=== PATIENT | female | born 1995 | race Caucasian/White ===

== ENCOUNTER 2018-06-17 10:23 | Emergency (ER) | payer OTHER, SELFPAY ==
[2018-06-17 11:02] LABS: Urine Blood NEGATIVE (NEG); Urine Glucose NEGATIVE (NEG); Urine Protein 1+ (NEG); Urine pH 6.5 (5.0-7.0)
[2018-06-17 11:10] LABS: Urine Amorphous Sediment TRACE /HPF (NONE SEEN); Urine Bacteria <20 /HPF (<20); Urine Culture Reflex Order NOT NEEDED; Urine Mucus 1+ /HPF (NONE SEEN); Urine RBC <5 /HPF (NONE SEEN)
--- NOTE | 2018-06-17 11:10 | RAD REPORT ---
EXAM DESCRIPTION: CT - Head Brain Wo Cont - 06/17/2018 11:03 am CLINICAL HISTORY: Hand and face numbness COMPARISON: None. TECHNIQUE: Axial 5 mm thick images of the head were obtained without IV contrast. All CT scans are performed using dose optimization technique as appropriate and may include automated exposure control or mA/KV adjustment according to patient size. FINDINGS: No intracranial hemorrhage, mass, edema or shift of mid-line structures. No acute infarcti on changes seen. No abnormal extra-axial fluid collections. Ventricles are normal. Mastoid air cells and visualized portions of the paranasal sinuses are clear. No acute bony findings. IMPRESSION: Negative non-contrast CT head examination.
[2018-06-17 11:12] LABS: Barbiturates NEGATIVE (NEGATIVE); Benzodiazepines NEGATIVE (NEGATIVE); Cocaine NEGATIVE (NEGATIVE); METHAMPHETAM NEGATIVE (NEGATIVE); Methadone NEGATIVE (NEGATIVE); Opiates NEGATIVE (NEGATIVE); Phencyclidine NEGATIVE (NEGATIVE); THC Cannibis NEGATIVE (NEGATIVE)
--- NOTE | 2018-06-17 11:48 | RAD REPORT ---
EXAM DESCRIPTION: RAD - Lumbar Spine 3 Views - 06/17/2018 11:21 am CLINICAL HISTORY: Back pain, bilateral lower extremity numbness COMPARISON: None. FINDINGS: A three-view lumbar spine examination was performed. Lumbar bodies are normal in height. L 5 pars interarticularis defects are present with a very slight 2 mm subluxation of L5 relative to S1. No acute fracture or acute bone process. No disc space narrowing. No other pars defects. IMPRESSION: L5 spondylolysis with minimal 2 mm spondylolisthesis.
--- NOTE | 2018-06-17 12:10 | EKG ---
Test Date: 2018-06-17 Test Time: 10:41:06 Reinforced Concrete Inspector: RAMONITA MEASUREMENT RESULTS: Intervals: Rate: 114 PA: 130 QRSD: 72 QT: 306 QTc: 421 [place]: P: 53 PA: 130 QRS: 65 T: 19 INTERPRETIVE STATEMENTS: Sinus tachycardia Nonspecific T wave abnormality Abnormal ECG No previous ECG available for comparison Electronically Signed On 06-17-18 12:09:40 CDT by Heber Obrien
[2018-06-17] MEDS ORDERED: NA CHLORIDE 0.9% 1,000 ML ONE (12:11)
[2018-06-17 12:14] LABS: Absolute Lymphocytes (CBC) 1.1 K/uL (0.7-4.9); Absolute Monocytes 0.5 K/uL (0.1-1.3); Absolute Neutrophil 11.4 K/uL (1.8-8.0); Basophils % 0.2 % (0-1.3); Eosinophils % 2.9 % (0-4.4); Hematocrit 40.5 % (36.0-45.0); Lymphocytes % 7.9 % (15.3-44.8); MCH 29.2 pg (27.0-35.0); MCV 87.9 fL (80-100); MPV 8.3 fL (7.6-11.3); Monocytes % 3.9 % (3.3-12.3); RBC Red Blood Cell Count 4.61 M/uL (3.86-4.86)
[2018-06-17 12:27] LABS: BUN Blood Urea Nitrogen 18 mg/dL (7-18); Bicarbonate 28 mmol/L (21-32); Glucose Level 99 mg/dL (74-106); Potassium 3.4 mmol/L (3.5-5.1); Sodium Level 139 mmol/L (136-145)
[2018-06-17 13:14] LABS: Blood Morphology Comment NOT SEEN (NOT SEEN); Platelet Estimate ADEQ; Urine White Blood Cell Casts OK
--- NOTE | 2018-06-17 13:18 | EDPHYS ---
Physician Documentation [facility] Name: Carmine Umaña Age: 23 yrs Sex: Female : 1995 Arrival Date: 06/17/2018 Time: 10:24 Bed 5 Private MD: ED Physician Luke Vivas HPI: 06/17 10:55 This 23 yrs old Female presents to ER via Ambulatory with complaints of snw Numbness. 10:55 Onset: The symptoms/episode began/occurred acutely, yesterday, at 21:00. Associated snw signs and symptoms: The patient has no apparent associated signs or symptoms. Modifying factors: The patient symptoms are alleviated by nothing, the patient symptoms are aggravated by nothing. The patient has not experienced similar symptoms in the past. The patient has not recently seen a physician. pt reports that her half sister has MS, no thyroid dz in family, pt encouraged to see Neurology, states her has been suggesting this for some time as he notes she has a tic where she tilts her head sideways. this has been a problem increasing in intensity x one year. 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 - Social history:: Smoking status: Patient/guardian denies using tobacco. - Ebola Screening: : Patient negative for fever greater than or equal to 101.5 degrees Fahrenheit, and additional compatible Ebola Virus Disease symptoms Patient denies exposure to infectious person Patient denies travel to an Ebola-affected area in the 21 days before illness onset No symptoms or risks identified at this time. ROS: 10:53 Constitutional: Negative for fever, chills, and weight loss, Eyes: Negative for injury, snw pain, redness, and discharge, ENT: Negative for injury, pain, and discharge, Neck: Negative for injury, pain, and swelling, Cardiovascular: Negative for chest pain, palpitations, and edema, Respiratory: Negative for shortness of breath, cough, wheezing, and pleuritic chest pain, Abdomen/GI: Negative for abdominal pain, nausea, vomiting, diarrhea, and constipation, Back: Negative for injury and pain, : Negative for injury, bleeding, discharge, and swelling, MS/Extremity: Negative for injury and deformity, Skin: Negative for injury, rash, and discoloration. 10:53 Neuro: Positive for tingling, of the upper and lower extremities. Exam: 10:53 Constitutional: This is a well developed, well nourished patient who is awake, alert, snw and in no acute distress. Head/Face: Normocephalic, atraumatic. Eyes: Pupils equal round and reactive to light, extra-ocular motions intact. Lids and lashes normal. Conjunctiva and sclera are non-icteric and not injected. Cornea within normal limits. Periorbital areas with no swelling, redness, or edema. ENT: Nares patent. No nasal discharge, no septal abnormalities noted. Tympanic membranes are normal and external auditory canals are clear. Oropharynx with no redness, swelling, or masses, exudates, or evidence of obstruction, uvula midline. Mucous membranes moist. Neck: Trachea midline, no thyromegaly or masses palpated, and no cervical lymphadenopathy. Supple, full range of motion without nuchal rigidity, or vertebral point tenderness. No Meningismus. Chest/axilla: Normal chest wall appearance and motion. Nontender with no deformity. No lesions are appreciated. Respiratory: Lungs have equal breath sounds bilaterally, clear to auscultation and percussion. No rales, rhonchi or wheezes noted. No increased work of breathing, no retractions or nasal flaring. Abdomen/GI: Soft, non-tender, with normal bowel sounds. No distension or tympany. No guarding or rebound. No evidence of tenderness throughout. Back: No spinal tenderness. No costovertebral tenderness. Full range of motion. Skin: Warm, dry with normal turgor. Mildly mottled with no rashes, no lesions, and no evidence of cellulitis. MS/ Extremity: Pulses equal, no cyanosis. Neurovascular intact. Full, normal range of motion. Neuro: Awake and alert, GCS 15, oriented to person, place, time, and situation. Cranial nerves II-XII grossly intact. Motor strength 5/5 in all extremities. Sensory grossly intact. Cerebellar exam normal. Normal gait. 10:53 Cardiovascular: Rate: tachycardic, Heart sounds: normal. Vital Signs: 10:30 BP 126 / 99; Pulse 116; Resp 20; Temp 99.2; Pulse Ox 100% on R/A; Weight 76.66 kg; aj Height 5 ft. 7 in. (170.18 cm); 11:30 BP 117 / 82; Pulse 94; Resp 16; Pulse Ox 98% on R/A; ph 12:51 BP 102 / 70; Pulse 92; Resp 16; Pulse Ox 100% on R/A; ph 14:10 BP 104 / 71; Pulse 90; Resp 16 S; Pulse Ox 100% on R/A; jl7 10:30 Body Mass Index 26.47 (76.66 kg, 170.18 cm) aj MDM: 10:47 Patient medically screened. snw 13:21 Data reviewed: vital signs, nurses notes. Data interpreted: Pulse oximetry: on room air snw is 100 %. Interpretation: normal. Counseling: I had a detailed discussion with the patient and/or guardian regarding: the historical points, exam findings, and any diagnostic results supporting the discharge/admit diagnosis, lab results, radiology results, the need for outpatient follow up, to return to the emergency department if symptoms worsen or persist or if there are any questions or concerns that arise at home. Special discussion: Based on the history and exam findings, there is no indication for further emergent testing or inpatient evaluation. I discussed with the patient/guardian the need to see the neurologist for further evaluation of the symptoms. I discussed with the patient/guardian the need to see the primary care provider for further evaluation of the symptoms. 06/17 10:39 Order name: Urine Microscopic Only; Complete Time: 11:15 snw 06/17 10:47 Order name: CBC with Diff; Complete Time: 13:16 snw 06/17 10:47 Order name: Chem 7; Complete Time: 12:32 snw 06/17 10:47 Order name: TSH; Complete Time: 12:32 snw 06/17 10:47 Order name: UDS; Complete Time: 11:15 snw 06/17 10:59 Order name: Urine Dipstick--Ancillary (enter results); Complete Time: 11:07 em1 06/17 10:39 Order name: Urine Test (obtain specimen); Complete Time: 10:59 snw 06/17 10:39 Order name: Urine Dipstick-Ancillary (obtain specimen); Complete Time: 10:59 snw 06/17 10:39 Order name: Lumbar Spine (3 Views) XRAY; Complete Time: 12:01 snw 06/17 10:47 Order name: CT Head Brain wo Cont; Complete Time: 11:15 snw 06/17 10:48 Order name: EKG; Complete Time: 10:48 snw 06/17 10:59 Order name: Urine --Ancillary (enter results); Complete Time: 11:07 em1 06/17 12:20 Order name: CBC Smear Scan; Complete Time: 13:16 EDMS 06/17 10:48 Order name: EKG - Nurse/Tech; Complete Time: 12:01 snw 06/17 12:33 Order name: VS Recheck; Complete Time: 13:05 snw Administered Medications: 12:30 Drug: NS 0.9% 1000 ml Route: IV; Rate: 1000 ml; Site: left antecubital; ph 13:30 Follow up: IV Status: Completed infusion jl7 Disposition: 16:17 Co-signature as Attending Physician, Luke Vivas MD I agree with the assessment and kdr plan of care. Disposition: 06/17/18 13:17 Discharged to Home. Impression: Paresthesia of skin. - Condition is Stable. - Discharge Instructions: Paresthesia, Peripheral Neuropathy. - Medication Reconciliation Form, Thank You Letter, Antibiotic Education, Prescription Opioid Use form. - Follow up: Private Physician; When: 2 - 3 days; Reason: Recheck today's complaints, Continuance of care, Re-evaluation by your physician. Follow up: Emergency Department; When: As needed; Reason: Worsening of condition. Signatures: Dispatcher [employer] Shaina Hyatt, RN Luke Figueroa MD MD kdr Therrien, Shelly, CLIENT SOLUTIONS SPECIALIST-C CLIENT SOLUTIONS SPECIALIST-Csnw Lana Escamilla, RN RN Sangeeta Cifuentes RN RN jl7 Corrections: (The following items were deleted from the chart) 14:17 13:17 06/17/2018 13:17 Discharged to Home. Impression: Paresthesia of skin. Condition jl7 is Stable. Forms are Medication Reconciliation Form, Thank You Letter, Antibiotic Education, Prescription Opioid Use. Follow up: Private Physician; When: 2 - 3 days; Reason: Recheck today's complaints, Continuance of care, Re-evaluation by your physician. Follow up: Emergency Department; When: As needed; Reason: Worsening of condition. snw
--- NOTE | 2018-06-17 13:18 | ER ---
Nurse's Notes [facility] Name: Carmine Umaña Age: 23 yrs Sex: Female : 1995 Arrival Date: 06/17/2018 Time: 10:24 Bed 5 Private MD: Diagnosis: Paresthesia of skin Presentation: 06/17 10:28 Presenting complaint: Patient states: Reports numbness from bilateral knees down, aj hands, and face that started last night at 2100. Ambulated with steady gait to triage. Speech is clear. Transition of care: patient was not received from another setting of care. Onset of symptoms was June 16, 2018. Risk Assessment: Do you want to hurt yourself or someone else? Patient reports no desire to harm self or others. Initial Sepsis Screen: Does the patient meet any 2 criteria? No. Patient's initial sepsis screen is negative. Does the patient have a suspected source of infection? No. Patient's initial sepsis screen is negative. Care prior to arrival: None. 10:28 Method Of Arrival: Ambulatory 10:28 Acuity: NINA 3 aj Triage Assessment: 10:30 General: Appears in no apparent distress. comfortable, Behavior is calm, cooperative, aj appropriate for age. Pain: Denies pain. Neuro: Level of Consciousness is awake, alert, obeys commands, Oriented to person, place, time, situation, Appropriate for age Glass Novelty Maker are equal bilaterally Moves all extremities. Full function Gait is steady, Speech is normal, Facial symmetry appears normal, Tingling in face, right hand, left hand, right foot, left foot, right leg and left leg. Respiratory: Airway is patent Respiratory effort is even, unlabored, Respiratory pattern is regular, symmetrical. Derm: Skin is intact, is healthy with good turgor, Skin is pink, warm \T\ dry. normal. 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 - Social history:: Smoking status: Patient/guardian denies using tobacco. - Ebola Screening: : Patient negative for fever greater than or equal to 101.5 degrees Fahrenheit, and additional compatible Ebola Virus Disease symptoms Patient denies exposure to infectious person Patient denies travel to an Ebola-affected area in the 21 days before illness onset No symptoms or risks identified at this time. Screenin:54 Abuse screen: Denies threats or abuse. Denies injuries from another. Nutritional ph screening: No deficits noted. Tuberculosis screening: No symptoms or risk factors identified. 13:04 Fall Risk None identified. ph Assessment: 10:45 General: Appears in no apparent distress. comfortable, slender, well groomed, Behavior ph is calm, cooperative, appropriate for age, Denies fever, feeling ill. Pain: Denies pain. Neuro: Level of Consciousness is awake, alert, obeys commands, Oriented to person, place, time, situation, Glass Novelty Maker are equal bilaterally Moves all extremities. Full function Gait is steady, Speech is normal, Pupils are PERRLA, Reports numbness in face, right arm and left arm, right lower leg and left lower leg. Cardiovascular: Denies chest pain, nausea, shortness of breath. Respiratory: Airway is patent Respiratory effort is even, unlabored, Respiratory pattern is regular, symmetrical. GI: No signs and/or symptoms were reported involving the gastrointestinal system. : No signs and/or symptoms were reported regarding the genitourinary system. Derm: Skin is intact, is healthy with good turgor, Skin is pink, warm \T\ dry. Musculoskeletal: Circulation, motion, and sensation intact. Range of motion: intact in all extremities. 12:00 Reassessment: Patient appears in no apparent distress at this time. Patient and/or ph family updated on plan of care and expected duration. Pain level reassessed. Patient is alert, oriented x 3, equal unlabored respirations, skin warm/dry/pink. Pt resting quietly, awaiting CT results. 13:05 Reassessment: Patient appears in no apparent distress at this time. Patient and/or ph family updated on plan of care and expected duration. Pain level reassessed. Patient is alert, oriented x 3, equal unlabored respirations, skin warm/dry/pink. Vital Signs: 10:30 BP 126 / 99; Pulse 116; Resp 20; Temp 99.2; Pulse Ox 100% on R/A; Weight 76.66 kg; aj Height 5 ft. 7 in. (170.18 cm); 11:30 BP 117 / 82; Pulse 94; Resp 16; Pulse Ox 98% on R/A; ph 12:51 BP 102 / 70; Pulse 92; Resp 16; Pulse Ox 100% on R/A; ph 14:10 BP 104 / 71; Pulse 90; Resp 16 S; Pulse Ox 100% on R/A; jl7 10:30 Body Mass Index 26.47 (76.66 kg, 170.18 cm) aj ED Course: 10:24 Patient arrived in ED. as 10:29 Triage completed. aj 10:30 Arm band placed on left wrist. Patient placed in an exam room. aj 10:37 Shanika Mckeon, WAYNE is PHCP. snw 10:37 Luke Vivas MD is Attending Physician. snw 10:41 Lana Escamilla, RYOCE is Primary Nurse. ph 10:52 EKG done, by ED staff, reviewed by Shanika BLACK. em1 11:[address] via wheelchair. cw1 11:03 CT Head Brain wo Cont In Process Unspecified. EDMS 11:19 CT completed. X-ray completed. Patient moved to radiology via wheelchair. Patient taken la2 to an exam room, Patient moved back from radiology. 11:20 Lumbar Spine (3 Views) XRAY In Process Unspecified. EDMS 11:57 Initial lab(s) drawn, by me, sent to lab. Inserted saline lock: 20 gauge in left em1 antecubital area, using aseptic technique. Blood collected. 13:04 Patient has correct armband on for positive identification. Bed in low position. Call ph light in reach. Side rails up X 1. Pulse ox on. NIBP on. Warm blanket given. 14:10 No provider procedures requiring assistance completed. IV discontinued, intact, jl7 bleeding controlled, No redness/swelling at site. Pressure dressing applied. Administered Medications: 12:30 Drug: NS 0.9% 1000 ml Route: IV; Rate: 1000 ml; Site: left antecubital; ph 13:30 Follow up: IV Status: Completed infusion jl7 Outcome: 13:17 Discharge ordered by . snw 14:17 Patient left the ED. jl7 14:17 Discharged to home ambulatory. ph 14:17 Condition: good 14:17 Discharge instructions given to patient, Instructed on discharge instructions, follow up and referral plans. Demonstrated understanding of instructions, follow-up care. Signatures: Dispatcher [employer] Shaina Hyatt, RN RN Shanika Kirkland, COURSE INSTRUCTOR-C COURSE INSTRUCTOR-Csnw Alejandrina Solis Eric em1 Nilesh, Jordyn cw1 Lana Escamilla RN RN ph Leal, Jahala, RN RN jl7 Janet Pollack
[2018-06-17 14:30] VITALS: TEMP 99.2
[2018-06-17 14:32] VITALS: O2SAT 100
[2018-06-17 14:33] VITALS: BP 104/71
== END 2018-06-17 14:17 | disposition home or self-care (01) ==
LOC: ER 10:23
DX: R20.0 Anesthesia of skin (principal)
CPT/HCPCS: 36415; 70450; 72100; 80048; 80307; 81003; 81015; 81025; 84443; 85025; 93005; 96360; 99284; J7030

== ENCOUNTER 2019-03-18 04:46 | Inpatient (IN) | payer OTHER ==
[2019-03-17 12:29] LABS: RPR Titer ND
[2019-03-17 12:33] LABS: Absolute Lymphocytes (CBC) 2.6 K/uL (0.7-4.9); Absolute Neutrophil 8.3 K/uL (1.8-8.0); Basophils % 0.3 % (0-1.3); Eosinophils % 0.5 % (0-4.4); Lymphocytes % 21.4 % (15.3-44.8); MPV 9.5 fL (7.6-11.3); Monocytes % 8.6 % (3.3-12.3); RBC Red Blood Cell Count 3.79 M/uL (3.86-4.86); Urine Appearance CLEAR; Urine Bilirubin NEGATIVE (NEG); Urine Blood NEGATIVE (NEG); Urine Color YELLOW; Urine Glucose NEGATIVE (NEG); Urine Protein NEGATIVE (NEG)
[2019-03-17 12:54] LABS: Urine Microscopic Reflex NO UMIC
[~2019-03-18 04:46] MED LIST: Ringers Lactate 1,000 ML IV PRN; Ringers Lactate 1,000 ML IV SCH
[2019-03-18] MEDS ORDERED: NA CIT/CITRIC AC 30 ML ORAL UDC PO ONE (04:48)
[2019-03-18] MEDS ORDERED: FAMOTIDINE 20 MG/2 ML VIAL IV ONE (04:49)
[2019-03-18] MEDS ORDERED: METOCLOPRAMIDE 10 MG/2mL INJ IV ONE (05:00)
[2019-03-18 05:18] VITALS: BMI 29.6
[2019-03-18] MEDS ORDERED: CARBOPROST TROME 250 MCG/ML IM ONE (07:00)
[2019-03-18] MEDS ORDERED: METHYLERGONOVINE 0.2MG/ML AMP IM ONE (07:00)
[2019-03-18] MEDS ORDERED: CEFAZOLIN/SWI 2gm 2 GM/20 ML SYR IVP SCH (07:00)
[2019-03-18] MEDS ORDERED: MORPHINE SULFATE/PF 1 MG/ML (10 ML AMP) ONE (07:14)
[2019-03-18] MEDS ORDERED: OXYTOCIN 10 UNIT/ML ML IV ONE (07:15)
[2019-03-18] MEDS ORDERED: ONDANSETRON 4 MG/2 ML VIAL ONE (07:21)
[2019-03-18] MEDS ORDERED: LIDOCAINE 2% MPF 5 ML VIAL ONE (07:40)
[2019-03-18] MEDS ORDERED: EPHEDRINE SULF 50 MG/ML VIAL ONE (07:49)
[2019-03-18] MEDS ORDERED: NS 0.9% VIAL 10 ML ONE (07:49)
[2019-03-18] MEDS ORDERED: ACETAMINOPHEN 500 MG TAB PO PRN (08:26)
[2019-03-18] MEDS ORDERED: DIPHENHYDRAMINE 25 MG TAB/CAP PO PRN (08:26)
[2019-03-18] MEDS ORDERED: ONDANSETRON 4 MG (ODT) TAB PO PRN (08:26)
[2019-03-18] MEDS ORDERED: KETOROLAC 30 MG/ML INJ IM PRN (08:26)
[2019-03-18] MEDS ORDERED: Oxycodone HCl/Acetaminophen 1 TAB TAB PO PRN (08:26)
[2019-03-18] MEDS ORDERED: BISACODYL 10 MG RECTAL SUPP RECT PRN (08:26)
[2019-03-18] MEDS ORDERED: ONDANSETRON 4 MG/2 ML VIAL IV PRN (08:26)
[2019-03-18] MEDS ORDERED: CEFAZOLIN 1GM (PREMIX IV) 50 ML IV ONE ×2 (08:26→16:00)
--- NOTE | 2019-03-18 08:40 | PREOPHP ---
Date of Admission: 03/18/2019 History Of Present Illness: Carmine Kebede is a 23-year-old 4, para 3, all previous C-sectio ns, for repeat , does not want a tubal. Knows with each surgery the risks of complications including infection, blood loss, anesthetic complications, injury to bladder, bowel, ureter, and accr eta. Nonetheless does not wish sterilization. She had a blood transfusion in 2009, she said that wa s prior to any . She has had gallbladder removed. She has a history of herpes. She is in a herpes-free interval and on acyclovir. Family History: Mother and father with hypertension. Mother with diabetes. Physical Examination: HEENT: Clear. Pupils equal, round, reactive to light accommodation. Conjunctivae well perfused. N o oral, buccal, or lingual lesions. Chest and lungs: Clear. Heart: Without murmurs, thrills, heaves, or rubs. Breasts: Not examined. Abdomen: Term size. Baby is thought to be at least 8 pounds. Extremities: Clear without edema, cyanosis, or clubbing. The baby is vertex. Cervix is fingertip. She is not allergic to any medication. We will proceed with repeat section on Monday. CARMELA/BULMARO Voice ID: [id number]
[2019-03-18] MEDS ORDERED: OXYTOCIN/LR 20 UNIT/1,000 ML BAG IV SCH (09:00)
[2019-03-18] MEDS ORDERED: D5LR 1,000 ML with OXYTOCIN 20 UNIT IV SCH ×2 (09:00)
[2019-03-18] MEDS ORDERED: CEFAZOLIN/SWI 1gm 1 GM/10 ML SYR IV ONE (16:00)
[2019-03-18] MEDS: KETOROLAC 30 MG/ML INJ IV PRN (16:40)
--- NOTE | 2019-03-18 19:22 | OP ---
Surgeon: Xu Maza MD Indications: A 23-year-old 4, para 3. All previous sections for repeat se ction. Infection, blood loss, anesthetic complications, injury to bladder, bowel, ureter, postoperat pankaj complications, clots in legs, and pneumonia discussed. The patient knows fully well this does no t constitute all the possible problems that could occur during or following surgery and knows that wi th each surgery the risk of complications increases. Anesthesia: Spinal block anesthesia Dr. Adams and group. Rn Psych Surgeon: Dr. Penn. Description Of Procedure: After prepping and draping, a timeout was performed. Pfannenstiel incisio n was then created over previous incision site. The incision carried to the fascia. The fascia was incised and incision carried transversely bilaterally. Anterior fascial plane was developed with bot h blunt and sharp dissection. The peritoneal defect was seen at that point. The midline muscles wer e with scissors and bluntly. Low transverse uterine incision was created. The lower uteri ne segment was very thin. A 7-pound female was delivered through the incision without difficulty. N uchal cord and body cord x1. Apgars 9 and 9. Placenta was removed manually. Uterus cleared of clot and blood and exteriorized. Membranes were removed, which were quite tenacious but completely remov ed. Cervical os then dilated. Uterus closed with a running locked stitch of 1 chromic followed by i mbricating stitch of 1 chromic. Estimated blood loss 750 cc. Gutters clear of clot and blood. Uter us replaced into the peritoneal cavity. Muscles reapproximated with 0 Vicryl 3 interrupted sutures. Fascia was closed with 1 Vicryl running from either angle to the midline. Subcutaneous tissue was c losed with 2-0 plain. Absorbable mikel placed and then metal mikel placed. The patient had been given 2 g of Ancef. Tolerated all procedures well. She was transferred back to her room in good co ndition. Final Diagnoses: 1.Term intrauterine . 2.Repeat section. Spinal block anesthesia. CARMELA/BULMARO Voice ID: [id number] Report ID: [id number]
[2019-03-18] MEDS: Oxycodone HCl/Acetaminophen 1 TAB TAB PO PRN (20:07)
[2019-03-18 21:41] LABS: RPR (Rapid Plasma Reagin) NON-REACT (NON-REACT)
[2019-03-19] MEDS: KETOROLAC 30 MG/ML INJ IV PRN (00:45)
[2019-03-19] MEDS: ACETAMINOPHEN 500 MG TAB PO PRN ×2 (06:43→11:00)
[2019-03-19] MEDS ORDERED: MAGNESIUM HYDROXIDE 8% 30 ML PO PRN (08:26)
[2019-03-19] MEDS: IBUPROFEN 200 MG TAB PO PRN ×2 (13:01→20:46)
--- NOTE | 2019-03-19 15:50 | PN ---
Postoperatively, the patient has done well. H and H with expected change. Output is good. We will discontinue Noonan and IV. Encourage ambulation. Tdap administration again offered. She has decline d this during her . No post spinal block problems. If all goes well, dismissal tomorrow. CARMELA/BULMARO Voice ID: [id number] Report ID: [id number]
[2019-03-19] MEDS: Oxycodone HCl/Acetaminophen 1 TAB TAB PO PRN (22:30)
[2019-03-20 09:03] VITALS: BP 117/75; TEMP 98.5
--- NOTE | 2019-03-21 05:49 | DS ---
Date of Discharge: 03/20/2019 Hospital Course: A 23-year-old 4, para 3, 3 previous C-sections, underwent repeat s ection, low-transverse, delivery of approximately 7 pound female, Apgars 9 and 9. Spinal block anest hesia. 750 cc blood loss. Postoperatively did quite well, afebrile, ambulating, voiding. Lochia is normal. No post spinal block problems. She will be dismissed this morning to return back to my off ice in 1 week for followup, to report any temperature elevation of 100 degrees or greater, severe aleja n, heavy bleeding, or any other type of abnormalities. Rh positive. Immune to Rubella. Negative be ta strep screen. The patient has declined Tdap administration. This has been offered several times. Dismissed with tramadol for analgesia. She knows this . She could take Motrin instead, but prefers tramadol. Final Diagnoses: 1.Term intrauterine . 2.Repeat section. 3.Spinal block anesthesia. 4.Tdap offered and declined. CARMELA/BULMARO Voice ID: [id number] Report ID: [id number]
[2019-03-21 13:22] LABS: HBsAG Nonreactive (Nonreactive)
== END 2019-03-20 09:35 | disposition home or self-care (01) | DRG 788 ==
LOC: 2ND-WC 04:46
PROVIDERS: ADMIT Specialist; ATTEND Specialist
PROC: 10D00Z1 Extraction of Products of Conception, Low, Open Approach (ICD-10-PCS; principal; 2019-03-18 07:30)
DX: O34.211 Maternal care for low transverse scar from previous cesarean delivery (principal); N85.8 Other specified noninflammatory disorders of uterus; Z3A.39 39 weeks gestation of pregnancy; Z37.0 Single live birth; O69.81X0 Labor and delivery complicated by cord around neck, without compression, not applicable or unspecified; O69.82X0 Labor and delivery complicated by other cord entanglement, without compression, not applicable or unspecified
CPT/HCPCS: 36415; 81003; 85014; 85025; 86592; 86850; 86900; 86901; 87340; 88307; J0690; J2210; J2405; J2590; J2765

== ENCOUNTER 2022-04-24 02:29 | Emergency (ER) | payer OTHER ==
[2022-04-24] MEDS ORDERED: METOCLOPRAMIDE 10 MG/2mL INJ ONE (03:21)
[2022-04-24] MEDS ORDERED: DIPHENHYDRAMINE 50 MG/ML VIAL ONE (03:21)
[2022-04-24] MEDS ORDERED: NA CHLORIDE 0.9% 1,000 ML ONE (03:22)
[2022-04-24] MEDS ORDERED: NA CHLORIDE 0.9% 100 ML ONE (03:22)
--- NOTE | 2022-04-24 05:08 | EDPHYS ---
Physician Documentation [facility] Name: Carmine Umaña Age: 26 yrs Sex: Female : 1995 Arrival Date: 04/24/2022 Time: 02:30 Bed 17 Private MD: ED Physician Ephraim Vitale HPI: 04/24 03:36 This 26 yrs old Female presents to ER via Ambulatory with complaints of Nausea/Vomiting.ms3 03:36 The patient presents to the emergency department with. ms3 03:37 The patient complains of pain to the generalized head. The patient describes the ms3 headache as throbbing. Onset: The symptoms/episode began/occurred 5 hour(s) ago. Associated signs and symptoms: Pertinent positives: nausea, vomiting. Severity of symptoms: At its worst the pain was severe, in the emergency department the pain is unchanged. Headache History: The patient has had previous headaches and this one is more severe than previous episodes. The symptoms are alleviated by nothing. the symptoms are aggravated by nothing. 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 - Social history:: Smoking status: Patient denies any tobacco usage or history of. ROS: 03:37 Constitutional: Negative for fever, and chills. Eyes: Negative for injury, pain, ms3 redness, and discharge, Neck: Negative for injury, pain, and swelling, Cardiovascular: Negative for chest pain, and palpitations. Respiratory: Negative for shortness of breath, cough, wheezing, and pleuritic chest pain. 03:37 MS/Extremity: Negative for injury and deformity, Skin: Negative for injury, rash, and discoloration. 03:37 Abdomen/GI: Positive for nausea, vomiting. 03:37 Neuro: Positive for headache. 03:37 All other systems are negative. Exam: 03:37 Constitutional: This is a well developed, well nourished patient who is awake, alert, ms3 and in no acute distress. Head/Face: Normocephalic, atraumatic. Neck: Trachea midline, no cervical lymphadenopathy. Supple, full range of motion without nuchal rigidity, or vertebral point tenderness. No Meningismus. Chest/axilla: Normal chest wall appearance and motion. Nontender with no deformity. Cardiovascular: Regular rate and rhythm with a normal S1 and S2. No gallops, murmurs, or rubs. Normal PMI, no JVD. No pulse deficits. Respiratory: Lungs have equal breath sounds bilaterally, clear to auscultation and percussion. No rales, rhonchi or wheezes noted. No increased work of breathing, no retractions or nasal flaring. Abdomen/GI: Soft, non-tender, with normal bowel sounds. No distension or tympany. No guarding or rebound. No evidence of tenderness throughout. Back: No spinal tenderness. No costovertebral tenderness. Full range of motion. Skin: Warm, dry with normal turgor. Normal color with no rashes, no lesions, and no evidence of cellulitis. MS/ Extremity: Pulses equal, no cyanosis. Neurovascular intact. Full, normal range of motion. 03:37 Neuro: Orientation: is normal, Mentation: is normal, Cranial nerves: CN II- XII are normal as tested, Cerebellar function: is grossly normal, normal finger to nose testing, Motor: is normal, Sensation: is normal. Vital Signs: 02:57 BP 125 / 90; Pulse 91; Resp 19; Temp 98.1; Pulse Ox 100% ; Weight 77.11 kg; Height 5 kd3 ft. 8 in. (172.72 cm); Pain 10/10; 04:04 BP 117 / 81; Pulse 78; Resp 16; Pulse Ox 100% ; kd3 05:49 BP 112 / 71; Pulse 72; Resp 18; Pulse Ox 100% on R/A; kd3 02:57 Body Mass Index 25.85 (77.11 kg, 172.72 cm) kd3 MDM: 03:01 Patient medically screened. ms3 03:37 Differential diagnosis: intracerebral hemorrhage, migraine, sinusitis, subarachnoid ms3 bleed, tension headache. 05:49 Data reviewed: vital signs, nurses notes, radiologic studies, CT scan. ED course: ms3 Reevaluation patient improved, no apparent distress, nontoxic, ambulatory in emergency department, alert and oriented x4. Discussed performing lumbar puncture with patient patient declines. Discussed transfer for MRI for possible sinus venous thrombosis and patient declines. Patient states she would like to be discharged at this time. Patient to follow-up with her primary care physician in 1 to 2 days. Patient understands agrees plan. All questions were answered. Return precautions discussed include worsening symptoms, or any other concerns. 04/24 03:18 Order name: Head Brain Wo Cont EDMS Administered Medications: 03:22 Drug: Reglan (metoCLOPramide) 10 mg Route: IVP; Site: right antecubital; kd3 05:31 Follow up: Response: No adverse reaction kd3 03:22 Drug: Benadryl (diphenhydrAMINE) 25 mg Route: IVP; Site: right antecubital; kd3 05:31 Follow up: Response: No adverse reaction kd3 03:22 Drug: NS 0.9% 1000 ml Route: IV; Rate: 1000 ml; Site: right antecubital; kd3 05:31 Follow up: Response: No adverse reaction; IV Status: Completed infusion kd3 Disposition Summary: 04/24/22 05:07 Discharge Ordered Location: Home ms3 Condition: Stable ms3 Diagnosis - Headache ms3 - Nausea ms3 - 14 weeks gestation of ms3 Followup: ms3 - With: Private Physician - When: 2 - 3 days - Reason: Recheck today's complaints Discharge Instructions: - Discharge Summary Sheet ms3 - General Headache Without Cause ms3 - Nausea, Adult ms3 Forms: - Medication Reconciliation Form ms3 - Thank You Letter ms3 - Antibiotic Education ms3 - Prescription Opioid Use ms3 Signatures: Dispatcher [employer] EDMS Ephraim Vitale DO DO ms3 Meme Walker RN RN kd3 Corrections: (The following items were deleted from the chart) 03:47 03:41 Head Brain Wo Cont+CT.RAD.BRZ ordered. EDMS EDMS
--- NOTE | 2022-04-24 05:08 | ER ---
Nurse's Notes [facility] Name: Carmine Umaña Age: 26 yrs Sex: Female : 1995 Arrival Date: 04/24/2022 Time: 02:30 Bed 17 Private MD: Diagnosis: Headache;Nausea;14 weeks gestation of Presentation: 04/24 02:57 Chief complaint: Patient states: i am 14 weeks and i have the worst headache kd3 of my life and i cannot get rid of it. i was vomiting on Monday but i feel like my brain is touching my skull. Coronavirus screen: Vaccine status: Patient reports being unvaccinated. Ebola Screen: No symptoms or risks identified at this time. Initial Sepsis Screen: Does the patient meet any 2 criteria? No. Patient's initial sepsis screen is negative. Does the patient have a suspected source of infection? No. Patient's initial sepsis screen is negative. Risk Assessment: Do you want to hurt yourself or someone else? Patient reports no desire to harm self or others. 02:57 Method Of Arrival: Ambulatory kd3 02:57 Acuity: NINA 3 kd3 03:02 Onset of symptoms was April 24, 2022. kd3 Triage Assessment: 03:00 General: Appears uncomfortable, Behavior is calm, cooperative. Pain: Complains of pain kd3 in headache. Neuro: Level of Consciousness is awake, alert, obeys commands, Oriented to person, place, time, situation. GI: Reports nausea. 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 - Social history:: Smoking status: Patient denies any tobacco usage or history of. Screenin:02 Abuse screen: Denies threats or abuse. Denies injuries from another. Nutritional kd3 screening: No deficits noted. Tuberculosis screening: No symptoms or risk factors identified. Fall Risk None identified. Assessment: 03:23 Reassessment: Patient and/or family updated on plan of care and expected duration. Pain kd3 level reassessed. Patient is alert, oriented x 3, equal unlabored respirations, skin warm/dry/pink. Neuro: Level of Consciousness is awake, alert, obeys commands, Oriented to person, place, time, situation. GI: Abdomen is non-distended. Vital Signs: 02:57 BP 125 / 90; Pulse 91; Resp 19; Temp 98.1; Pulse Ox 100% ; Weight 77.11 kg; Height 5 kd3 ft. 8 in. (172.72 cm); Pain 10/10; 04:04 BP 117 / 81; Pulse 78; Resp 16; Pulse Ox 100% ; kd3 05:49 BP 112 / 71; Pulse 72; Resp 18; Pulse Ox 100% on R/A; kd3 02:57 Body Mass Index 25.85 (77.11 kg, 172.72 cm) kd3 ED Course: 02:30 Patient arrived in ED. ja2 02:35 Meme Walker, ROYCE is Primary Nurse. kd3 02:38 Ephraim Vitale DO is Attending Physician. ms3 03:00 Triage completed. kd3 03:00 Arm band placed on right wrist. kd3 03:03 Patient has correct armband on for positive identification. Client placed on continuous kd3 cardiac and pulse oximetry monitoring. NIBP monitoring applied. NIBP on. 03:18 Head Brain Wo Cont In Process Unspecified. EDMS 03:23 Inserted saline lock: 20 gauge in right antecubital area, using aseptic technique. kd3 05:30 No provider procedures requiring assistance completed. kd3 05:49 IV discontinued, intact, bleeding controlled, No redness/swelling at site. Pressure kd3 dressing applied. Administered Medications: 03:22 Drug: Reglan (metoCLOPramide) 10 mg Route: IVP; Site: right antecubital; kd3 05:31 Follow up: Response: No adverse reaction kd3 03:22 Drug: Benadryl (diphenhydrAMINE) 25 mg Route: IVP; Site: right antecubital; kd3 05:31 Follow up: Response: No adverse reaction kd3 03:22 Drug: NS 0.9% 1000 ml Route: IV; Rate: 1000 ml; Site: right antecubital; kd3 05:31 Follow up: Response: No adverse reaction; IV Status: Completed infusion kd3 Medication: 03:03 VIS not applicable for this client. kd3 Outcome: 05:07 Discharge ordered by . ms3 05:49 Discharged to home ambulatory. kd3 05:49 Condition: stable 05:49 Discharge instructions given to patient, Instructed on discharge instructions, follow up and referral plans. Demonstrated understanding of instructions, follow-up care. 05:50 Patient left the ED. kd3 Signatures: Dispatcher [employer] EDMS Ephraim Vitale DO DO ms3 Betty Dennis2 Meme Walker, RN RN kd3
[2022-04-24] MEDS ORDERED: ACETAMINOPHEN 500 MG TAB ONE (05:46)
[2022-04-24 06:05] VITALS: TEMP 98.1; O2SAT 100
[2022-04-24 06:08] VITALS: BP 112/71
--- NOTE | 2022-04-25 13:42 | RAD REPORT ---
EXAM DESCRIPTION: CT Head Without Intravenous Contrast CLINICAL HISTORY: The patient is 26 years old and is Female; HEADACHE TECHNIQUE: Axial computed tomography images of the head/brain without intravenous contrast. Sagitt al and coronal reformatted images were created and reviewed. This CT exam was performed using one o r more of the following dose reduction techniques: automated Exposure control, adjustment of the mA and/or kV according to patient size, and/or use of iterative r econstruction technique. COMPARISON: No relevant prior studies available.FINDINGS: Brain: Unremarkable. No hemorrhage . No significant white matter disease. No edema. Ventricles: Unremarkable. No ventriculomeg consuelo. Bones/joints: Unremarkable. No acute skull fracture. Soft tissues: Unremarkable. Sin uses: Unremarkable as visualized. No acute sinusitis. Mastoid air cells: No significant masto id fluid. IMPRESSION: No acute intracranial findings. No hemorrhage. Electronically signed by: Kalyani Lerner MD 04/24/2022 4:11 AM CDT Due to temporary technical issues with the PACS/Fluency reporting system, reports are being signed by the in house radiologist without review as a courtesy to ensure prompt reporting. The interpreting r adiologist is fully responsible for the content of the report.
== END 2022-04-24 05:50 | disposition home or self-care (01) ==
LOC: ER 02:29
DX: O26.892 Other specified pregnancy related conditions, second trimester (principal); R51.9 Headache, unspecified; R11.0 Nausea
CPT/HCPCS: 96361; 70450; 96375; 96374; 99283; J2765; J1200; J7030